=== PATIENT | male | born 1970 | race Caucasian/White ===

== ENCOUNTER 2022-03-01 13:06 | Emergency (ER) | payer SELFPAY ==
[2022-03-01 13:07] VITALS: BP 127/90; PULSE 76; RESP 16; TEMP 36.7; O2SAT 96
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
[2022-03-01] MEDS: acetaminophen 500 mg Tablet 1000 MG PO (14:36)
[2022-03-01] MEDS: ketorolac 30 mg/mL INJ IM (14:37)
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
== END 2022-03-01 15:22 ==
PROVIDERS: Emergency Provider Emergency Medicine
DX: S06.0X9A Concussion with loss of consciousness of unspecified duration, initial encounter (principal); S02.2XXA Fracture of nasal bones, initial encounter for closed fracture; J34.2 Deviated nasal septum; S00.93XA Contusion of unspecified part of head, initial encounter; S10.93XA Contusion of unspecified part of neck, initial encounter; S20.219A Contusion of unspecified front wall of thorax, initial encounter; Y09 Assault by unspecified means; Y92.149 Unspecified place in prison as the place of occurrence of the external cause
CPT/HCPCS: 70450; 70486; 71045; 72125; 72128; 96372; 99285; J1885

== ENCOUNTER 2022-03-06 20:28 | Emergency (ER) | payer SELFPAY ==
[2022-03-06 20:31] VITALS: PULSE 102; RESP 18; TEMP 36.9; O2SAT 94; BMI 38.0
[2022-03-06 20:37] VITALS: BP 174/103
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
[2022-03-06 20:45] LABS: Basophils # 0.1 10^3/uL (0.0-0.1); Basophils % 0.7 %; Eosinophils % 0.5 %; Hematocrit 49.9 % (42.0-52.0); Hemoglobin 16.4 g/dL (11.7-16.6); Lymphocytes # 2.2 10^3/uL (0.8-4.8); Lymphocytes % 26.2 %; Mean Corpuscular HGB Conc 32.9 g/dL (30.0-36.0); Mean Corpuscular Hemoglobin 29.2 pg (28.0-34.0); Mean Corpuscular Volume 88.8 fl (80-94); Mean Platelet Volume 10.8 fL (7.4-10.4); Monocytes # 0.6 10^3/uL (0.2-0.9); Monocytes % 6.8 %; Neutrophils # 5.39 10^3/uL (1.8-7.7); Neutrophils % 65.6 %; Nucleated Red Blood Cells % 0 %; Platelet Count 265 10^3/cmm (130-400); Red Blood Count 5.62 10^6/uL (4.1-5.3); Red Cell Distribution Width 13.5 % (12.1-15.1); White Blood Count 8.2 10^3/uL (4.0-10.0)
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
--- NOTE | 2022-03-06 20:46 | CTR_ITS ---
PROCEDURE INFORMATION: Exam: CT Abdomen And Pelvis With Contrast Exam date and time: 03/06/2022 9:04 PM Age: 51 years old Clinical indication: Abdominal pain; Localized; Left lower quadrant (llq); Prior surgery; Surgery type: Hernia repair; Patient HX: C/O llq pain with diarrhea; Additional info: Llq pain, diarrhea TECHNIQUE: Imaging protocol: Computed tomography of the abdomen and pelvis with contrast. Radiation optimization: All CT scans at this facility use at least one of these dose optimization techniques: automated exposure control; mA and/or kV adjustment per patient size (includes targeted exams where dose is matched to clinical indication); or iterative reconstruction. Contrast material: OMNI 350; Contrast volume: 100 ml; Contrast route: INTRAVENOUS (IV); COMPARISON: CT thoracic spin wo con* [id number] 03/01/2022 1:32 PM RADIATION DOSE METRICS: Total DLP (mGy-cm): 1138.87 FINDINGS: Liver: Hepatic steatosis. Gallbladder and bile ducts: Normal. No calcified stones. No ductal dilation. Pancreas: Normal. No ductal dilation. Spleen: Normal. No splenomegaly. Adrenal glands: Normal. No mass. Kidneys and ureters: Normal. No hydronephrosis. Stomach and bowel: Prominent fluid in the small bowel and colon with some small bowel wall thickening suggestive of an enterocolitis in the appropriate clinical setting. Appendix: No evidence of appendicitis. Intraperitoneal space: Unremarkable. No free air. No significant fluid collection. Vasculature: Unremarkable. No abdominal aortic aneurysm. Lymph nodes: Unremarkable. No enlarged lymph nodes. Urinary bladder: Mild urinary bladder wall thickening may be due to nondistention, please correlate for possible cystitis. Reproductive: Unremarkable as visualized. Bones/joints: Bilateral L5 pars interarticularis defects with minimal grade 1 anterolisthesis of L5 relative to S1. Soft tissues: Small right inguinal hernia containing omentum without bowel. CT/CT abdomen pelvis w con* [id number] IMPRESSION: 1. Prominent fluid in the small bowel and colon with some small bowel wall thickening suggestive of an enterocolitis in the appropriate clinical setting. 2. Mild urinary bladder wall thickening may be due to nondistention, please correlate for possible cystitis. 3. Bilateral L5 pars interarticularis defects with minimal grade 1 anterolisthesis of L5 relative to S1. 4. Hepatic steatosis. 5. Small right inguinal hernia containing omentum without bowel.
[2022-03-06] MEDS: iohexol 350 mg/mL 500 mL Btl (per mL) IV (21:07)
[2022-03-06 21:09] LABS: Alanine Aminotransferase 21 U/L (0-41); Albumin Level 4.8 g/dL (3.5-5.2); Alkaline Phosphatase 106 U/L (40-130); Anion Gap 16.4 (5-19); Aspartate Amino Transferase 20 U/L (0-40); Blood Urea Nitrogen 13 mg/dL (6-20); Calcium 10.1 mg/dL (8.5-10.5); Carbon Dioxide 25 mmol/L (22-29); Chloride 103 mmol/L (98-107); Globulin 3.3 g/dL (1.3-4.6); Glomerular Filtration Rate 79.4 mL/min (90-130); Glucose 99 mg/dL (65-115); Lipase 20 U/L (13-60); Osmolality Calculated 290 mOsm/kg (285-295); Potassium 4.4 mmol/L (3.5-5.1); Sodium 140 mmol/L (136-145); Total Bilirubin 0.5 mg/dL (0.15-1.2); Total Protein 8.1 g/dL (6.6-8.7)
[2022-03-06 21:23] LABS: Add Urine Microscopic? NO; Charge for UA Resulting for Rev
[2022-03-06 21:28] LABS: Bilirubin Urine Neg (Negative); Blood Urine Neg (Negative); Glucose Urine UA Norm (Normal); Ketones Urine Negative (Negative); Nitrate Urine Negative (Negative); Protein Urine Neg (Negative); Specific Gravity, Urine 1.015 (1.005-1.030); Urine Appearance Clear (CLEAR); Urine Color Yellow (Yellow); pH Urine 6 (5-7)
[2022-03-06 21:29] LABS: Leukocyte Esterase Urine Negative (Negative); Urobilinogen Urine Norm (Negative)
[2022-03-06 21:33] LABS: Amphetamines Screen Urine Negative (Negative); Barbiturates Screen Urine Negative (Negative); Benzodiazepines Screen Urine Negative (Negative); Cocaine Screen Urine Negative (Negative); Opiate Screen Urine Negative (Negative); PCP Screen Urine Negative (Negative); THC Screen Urine Negative (Negative)
[2022-03-06 21:49] VITALS: BP 165/95; PULSE 87; RESP 16; O2SAT 99
== END 2022-03-06 21:52 ==
PROVIDERS: Emergency Medicine; Emergency Provider Emergency Medicine
DX: S06.0XAA Concussion with loss of consciousness status unknown, initial encounter (principal); K52.9 Noninfective gastroenteritis and colitis, unspecified; W22.03XA Walked into furniture, initial encounter
CPT/HCPCS: 70450; 74177; 80053; 80306; 81003; 83690; 85025; 99284; Q9967